=== PATIENT | male | born 1965 | race Caucasian/White ===

== ENCOUNTER 2017-03-01 21:52 | Emergency (ER) | payer OTHER ==
[~2017-03-01] VITALS: Ht 195.6 cm; Wt 181.8 kg
[~2017-03-01 21:52] MED LIST: ASPI-973 PO; CHOL200025 PO; CYCL10TA9 PO; EXEN10PE SUBQ; HYDR-3825 PO; IBUP800T28 PO; INSU100V7 SUBQ; LOVA20TA PO; MELO-253 PO; METF1000 PO; MULT-1018 PO; OMEG-38 PO; OMPR20CCR PO; SERT100T9 PO; TRAM50TA2 PO
[2017-03-01 22:15] VITALS: BP 121/75; PULSE 70; RESP 16; O2SAT 97
--- NOTE | 2017-03-01 23:05 | ED.REPORT ---
HPI-Back Pain 40 and Over Date of Service Mar 01, 2017 ED Provider: Krishna Chang MD A 51 year old male with a history of diabetes and depression presents to the ED with back pain onset six days ago, while sitting on his bed. The pain is described as "spasms," with associated nausea. The patient has tried OTC medication and marijuana with no relief. He denies fever, chills, incontinence, urinary retention, numbness, tingling, weakness, dysuria, abdominal pain, chest pain, shortness of breath, or other symptoms. The patient has had similar symptoms in the past, relieved with Flexeril. Nursing Notes Stated Complaint: BACK SPASMS Chief Complaint: Back Pain or Injury Nursing Notes Reviewed: Yes Allergies: Coded Allergies: No Known Allergies (Verified Allergy, Unknown, 03/24/16) Scheduled Aspirin (Aspirin) 81 Mg Tablet 81 MG PO DAILY Cholecalciferol (Vitamin D3) (Vitamin D3) 2,000 Unit Tablet 2,000 UNIT PO BID Exenatide Inj (Byetta Inj) 10 Mcg/0.04 Ml Pen.injctr 10 MCG SUBQ BIDAC Insulin Glargine (Lantus U100 Insulin Vial) 100 Unit/Ml Vial 124 UNIT SUBQ DAILY Lovastatin (Lovastatin) 20 Mg Tablet 20 MG PO HS Meloxicam (Meloxicam) 15 Mg Tablet 15 MG PO DAILY Metformin (Glucophage) 1,000 Mg Tablet 1,000 MG PO BID Multivitamin (Multi Vitamin Daily) 1 Each Tablet 1 EACH PO DAILY [place]-3/Dha/Epa/Fish Oil (Fish Oil 1,000 mg Softgel) 1 Each Capsule 1 EACH PO DAILY Omeprazole (Prilosec) 20 Mg Capcr 20 MG PO DAILY Sertraline HCl (Sertraline) 100 Mg Tablet 100 MG PO DAILY Scheduled PRN Cyclobenzaprine (Cyclobenzaprine) 10 Mg Tablet 10 MG PO BID PRN PRN Spasm Cyclobenzaprine (Cyclobenzaprine) 5 Mg Tablet 5 MG PO HS PRN PRN Spasm Hydrocodone-Acetaminophen 7.5-325 mg (Hydrocodone-Acetaminophen 7.5-325 mg) 1 Each Tablet 1 TABLET PO QID PRN PRN For Pain Ibuprofen (Ibuprofen) 800 Mg Tablet 800 MG PO TID PRN PRN For Pain Tramadol (Tramadol) 50 Mg Tablet 50-100 MG PO TID PRN PRN For Pain General Time Seen by MD: 23:05 Chief Complaint Back pain Hx Obtained From: Patient Arrived By: Walk-in Sudden in Onset?: Yes Onset Occurred: 6 days ago Symptom Duration: Since onset Caused by: Spontaneous/no mechanism Location: : Perispinal lumbar Quality: Painful Severity: Current: Moderate Severity: Maximum: Moderate Pertinent Negative: Relieved by nothing Related History: Denies: Spinal surgery Recent Healthcare: No recent doctor visit Similar Sx Previous: Yes Past Medical History Past Medical History Diabetes, type 2- metformin Depression Past Surgical History none Family History noncontributory Smoking History Former Smoker Social History Other Social History: Good social support, , Local resident Ambulatory Status Independent Review of Systems Review of Systems Note: - tingling Constitutional: Denies: Chills, Fever Respiratory: Denies: Non-productive cough, Shortness of breath Cardiovascular: Denies: Chest pain GI: Reports: Nausea, Denies: Abdominal pain, Diarrhea, Vomiting Male: Denies Dysuria, Denies Urination decreased Musculoskeletal: Reports: Back pain Neurologic: Denies: Bladder dysfunction, Bowel dysfunction, Numbness, Weakness Complete sys rev & neg: except as marked. Physical Exam Initial Vital Signs Vital Signs (First) Date Time Temp Pulse Resp B/P Pulse Ox O2 Delivery O2 Flow Rate FiO2 03/01/17 22:15 36.5 70 16 121/75 97 Room Air Initial VS: Reviewed Head / Eyes: Atraumatic, Normocephalic ENT: Conjunctiva normal, No scleral icterus Extremities: Vascular intact (Well-perfused), Neuro intact, No swelling, No tenderness Skin: Warm, Dry, No cyanosis Psychiatric: Mood/affect normal, Behavior normal, Normal thought content General/Constitutional: Awake, Alert Respiratory / Chest: Breath sounds NL, Breath sounds = bilat, No respiratory distress Cardiovascular: Heart rate NL, Regular rhythm, Heart sounds NL, No gallop, No murmurs, No rubs Abdomen: Soft, Non-tender, No guarding, No rebound, No distention Back: Atraumatic, No midline vertebral tend Flank / Spine / Paraspinal: Positive: Lumbar paraspinal tend... (Bilateral) No spinal step-off Neurologic: Oriented X3, Speech NL, No motor deficits (Full strength lower extremities), No sensory deficits (Sensation intact lower extremities) Neck: Supple, Full range of motion, Non-tender, No midline vertebral tend Re-Eval/Medical Decision Med Decision/Clinical Course In summary, the patient is a generally healthy 51-year-old male with past medical history significant for low back spasms, who presents with back pain that is similar to previous episodes. Our primary and secondary assessment reveals an awake, alert patient in no acute distress. Hemodynamically stable and afebrile. Exam reveals normal neurologic exam of the lower extremities. Given this immunocompetent, afebrile, patient's history and exam, suspect muscle strain or spasm. No concerning signs or symptoms suggestive of cauda equina, cord compression, epidural abscess or other neurologic emergency. History not suggestive of referred intraabdominal pathology or vascular emergency. There is no history of significant trauma, fever, incontinence, unexplained weight loss, cancer history, long-term steroid use or IV drug use. And given the patient's young age, I do not feel imaging is warranted at this time. Given the patient's workup, feel they are safe for discharge with conservative management. The patient was given Flexeril for symptom control while here in the ER. Have discussed with the patient results of workup, indications for return including: motor weakness in the lower extremities and/or bowel or bladder incontinence. Also emphasized the need for PCP follow up. They understand and agree with the plan. Source of Hx: Old records Re-Evaluation/Progress : Time of Eval: 23:40 Re-Evaluation/Progress Note: Discussed with patient physical exam findings, diagnosis, and plan for discharge. Follow-up and return to the ER instructions given. Patient agrees with plan for care and all questions were addressed. Counseled Regarding: Diagnosis, Need for follow-up, When/why to return to ED Discharge & Departure Impression: Primary Impression: Low back pain Chronicity: acute Back pain laterality: bilateral Sciatica presence: without sciatica Qualified Code: M54.5 - Low back pain Additional Impression: Back muscle spasm Disposition: Home Discharge Condition All VS Reviewed: Yes Condition: Improved Patient Instructions: Low Back Strain (ED) Additional Instructions: Thank you for seeking care at the emergency room. Our primary goal today in the ED was to evaluate you for any life-threatening conditions. Your evaluation was reassuring. You will be discharged with a prescription for Flexeril. Do not drink alcohol or take other pain medication while taking Flexeril. Avoid bed rest - try to move around as much as possible.You may also apply ice or heat compresses for pain. You should follow-up with your primary doctor in the next week. You should return to the ED immediately if you develop incontinence, worsening pain, numbness, tingling, fevers, vomiting, cough, shortness of breath, chest pain, lightheadedness, weakness or any other concerning signs or symptoms. Thank you for letting us partake in your care today. Referrals: Pato Burns MD (PCP) Scribe Attestation Portions of this note were transcribed by Milagro Polanco. I, Dr. Chang, personally performed the history, physical exam, and medical decision-making; I reviewed and confirmed the accuracy of the information in the transcribed note. Signed by: Ye Irwin, 03/01/2017, 23:45 copies to: Pato Burns MD, Beck O MD Mar 01, 2017 23:05 MILAGRO POLANCO Mar 01, 2017 23:23
[2017-03-01] MEDS ORDERED: CYCL5TAB PO (23:24)
[2017-03-01 23:48] VITALS: BP 156/78; PULSE 78; RESP 16; O2SAT 98
[2017-03-11] MEDS ORDERED: PROP80CA2 PO (09:26)
[2017-03-11] MEDS ORDERED: DEP500ER PO (09:26)
[2017-03-11] MEDS ORDERED: OMEP20TA86 PO (09:26)
[2017-03-11] MEDS ORDERED: EXEN2PEN SUBQ (14:26)
== END 2017-03-01 23:50 | disposition home or self-care (01) ==
LOC: SED 21:52
DX: M54.5 Low back pain (principal); M62.830 Muscle spasm of back; R11.0 Nausea; E11.9 Type 2 diabetes mellitus without complications; Z79.84 Long term (current) use of oral hypoglycemic drugs; Z79.4 Long term (current) use of insulin; Z79.82 Long term (current) use of aspirin; Z87.891 Personal history of nicotine dependence

== ENCOUNTER 2017-03-12 12:16 | Day surgery (SDC) | payer OTHER ==
--- NOTE | 2017-03-11 11:21 | PCM.ANEPRE ---
Anesthesia Pre-Op Review Reason for Review: BMI > 45, COMORBIDITIES Additional Comments BMI 48 w known CHUCKY currently treated. OK to proceed at anesthesiologist discretion. Jorge Luis Cerda MD Mar 11, 2017 11:21
[~2017-03-12] VITALS: Ht 195.6 cm; Wt 185.6 kg
[~2017-03-12 12:16] MED LIST changes: -CYCL10TA9 PO; +DEP500ER PO; -EXEN10PE SUBQ; +EXEN2PEN SUBQ; -HYDR-3825 PO; -IBUP800T28 PO; +Lactated Ringer's 1,000 ML IV ONE; -MULT-1018 PO; -OMEG-38 PO; +OMEP20TA86 PO; -OMPR20CCR PO; +PROP80CA2 PO; -SERT100T9 PO; -TRAM50TA2 PO
[2017-03-12] MEDS ORDERED: Ondansetron 2 mg/mL 2 mL Inj ONE (12:17)
[2017-03-12] MEDS ORDERED: fentaNYL-PF 50 mCg/mL 2 mL Inj ONE (12:17)
[2017-03-12] MEDS ORDERED: MetoCLOpramide 5 mg/mL 2 mL Inj ONE (12:17)
[2017-03-12] MEDS ORDERED: Propofol 10,000 mCg/mL 20 mL Inj ONE (12:17)
[2017-03-12] MEDS ORDERED: SERT50TA9 PO (12:30)
[2017-03-12 12:38] VITALS: BP 156/77; PULSE 76; RESP 16; O2SAT 97
[2017-03-12] MEDS ORDERED: Lidocaine 2%-Epi 1:100,000 20 mL Inj INFILTRATE ONE (13:37)
[2017-03-12] MEDS ORDERED: Ropivacaine-PF 0.5% 30 mL Inj INJ ONE (13:37)
[2017-03-12] MEDS ORDERED: Lactated Ringer's 1,000 ML IV SCH (13:47)
[2017-03-12] MEDS ORDERED: Lactated Ringer's 500 ML IV PRN (13:47)
--- NOTE | 2017-03-12 13:47 | PCM.HPANE ---
Patient Data Surgeon Admitting Provider: Attending Provider:Luis Carlos Hines DO Primary Care Physician:Pato Burns MD Other Provider:Eddy Nair Anesthesia Reason for Visit Right Torn Medial And Lateral Meniscus Ht/WT & BMI Height (Feet): 6 Height (Inches): 5 Weight (Kilograms): 183.977 Body Mass Index 47.00 Allergies Coded Allergies: No Known Allergies (Verified Allergy, Unknown, 03/11/17) Past Anesthesia History Anesthesia History: Denies:: Abnormal Airway, Anesthesia Reactions, Difficult Intubation, Fam Anesthesia Reaction, Fam Malignant Hypertherm, Malignant Hyperthermia Diabetes History Hx Diabetes?: Yes Type of Diabetes: Type II Glycemic Control: Insulin & Oral Medication MRSA MRSA: No Medications Blood Thinner: Aspirin Home Meds Incl Beta Livier: Yes (PROPRANOLOL) Reported Medications Sertraline HCl (Sertraline)50 Mg Puaioz149 Mg PO DAILY 30 Days Ref 0 03/12/17 Exenatide Inj (Bydureon Inj)2 Mg/0.65 Ml Pen.injctr2 Mg SUBQ WEEKLY Wednesday03/11/17 Propranolol ER 80 Mg Cap.sa.24h80 Mg PO DAILY 03/11/17 Omeprazole 20 Mg Tablet.dr20 Mg PO DAILY 03/11/17 Divalproex ER (Depakote ER)500 Mg Nmzhbe916 Mg PO BID Ref 0 *DAILY USE ONLY* Swallowed whole without chewing to avoid local irritation of the mouth and throat. 03/11/17 Metformin (Glucophage)1,000 Mg Tablet1,000 Mg PO BID Ref 0 09/04/15 Meloxicam 15 Mg Alnjqy02 Mg PO DAILY 30 Days Ref 0 09/04/15 Lovastatin 20 Mg Onbwxz52 Mg PO HS #30 TABLET Ref 0 09/04/15 Insulin Glargine (Lantus U100 Insulin Vial)100 Unit/Ml Kmwf727 Unit SUBQ DAILY # 1 VIAL Ref 0 09/04/15 Discontinued Reported Medications Cholecalciferol (Vitamin D3) (Vitamin D3)2,000 Unit Tablet2,000 Unit PO BID 09/04/15 Aspirin 81 Mg Mubqqd91 Mg PO DAILY Ref 0 09/04/15 Tramadol 50 Mg Afohze06-511 Mg PO TID PRN For Pain Ref 0 09/04/15 Sertraline HCl (Sertraline)100 Mg Lquuww738 Mg PO DAILY 30 Days Ref 0 10/14/15 Omeprazole (Prilosec)20 Mg Capcr20 Mg PO DAILY 30 Days Ref 0 09/04/15 Multivitamin (Multi Vitamin Daily)1 Each Tablet1 Each PO DAILY 30 Days Ref 0 09/04/15 Ibuprofen 800 Mg Dyirev029 Mg PO TID PRN For Pain Ref 0 09/04/15 Lane-3/Dha/Epa/Fish Oil (Fish Oil 1,000 mg Softgel)1 Each Capsule1 Each PO DAILY 09/04/15 Exenatide Inj (Byetta Inj)10 Mcg/0.04 Ml Pen.nsveml45 Mcg SUBQ BIDAC 09/04/15 Discontinued Scripts Cyclobenzaprine 5 Mg Tablet5 Mg PO HS PRN Spasm #20 TABLET Ref 0 Prov:Krishna Chang MD 03/01/17 Cyclobenzaprine 10 Mg Oqivyh57 Mg PO BID PRN Spasm #20 TABLET Prov:Vadim Gaona 03/24/16 Hydrocodone-Acetaminophen 7.5-325 mg 1 Each Tablet1 Tablet PO QID PRN For Pain # 16 TABLET Ref 0 Prov:Vadim Gaona 03/24/16 History History of ENT Problems?: No HEENT History: Denies:: Abnormal Airway Cataracts Difficult Intubation Dysphagia Hearing Problem Sinus Problem TMJ Denture Type: None Teeth Condition: Within Normal Limits Hx of Heart Problems?: Yes Cardiovascular History: Positive for:: Heart Murmur (innocent murmur as teenager) Hypertension (HYPERLIPIDEMIA) Denies:: AICD Abdominal Aortic Aneurism Atrial Fibrillation Cardiac Surgery Chest Pain Congestive Heart Failure Edema Irregular Heartbeat Pacemaker Rheumatic Fever Hx of Respiratory Problem?: Yes Respiratory History: Positive for:: Use of C-PAP Machine (CHUCKY+ W/ CPAP SLEEP STUDY 08/2012) Denies:: Asthma COPD Emphysema Pneumonia Tuberculosis Hx Neurologic Problems?: Yes Neurological History: Denies:: Alzheimer's Disease CVA Dementia Dizziness Headaches Multiple Sclerosis Parkinson's Disease (HX BENIGN ESSENTIAL TREMOR) Seizures Other Neurological Pertinent: C/OF INSOMNIA,PLMD,RLS Hx of GI Problems?: Yes Hx of Problems?: No Genitourinary History: Denies:: Kidney Stones Male Hx: Denies:: Prostate Problems Scrotal Mass Testicular Surgery (HX HYPOGONADISM) Skin History: Denies:: History Skin Disorders? Pressure Ulcers Hx Musculoskeletal Problems?: Yes Musculoskeletal History: Positive for:: Musculoskeletal Trauma (RT KNEE MENISCAL TEAR=CURRENT PROBLEM S/P LT KNEE SCOPE) Denies:: Back Injury (C/OF LOWER BACK STRAIN) Degenerative Joint Joint Replacement Systemic Lupus Hx of Psycho/Social Problems?: Yes Psycho Social History: Positive for:: Anxiety Hx Depression Denies:: Suicide Attempt Hx Surgeries?: Yes (LT KNEE SCOPE) Hx Any Other Health Problems?: Yes Other History: Denies:: Cancer Endocrine Disease Hospitalization Thyroid Disease History Blood Transfusions: Denies:: Blood Transfusions Hx Diabetes: Yes Hx Alcohol Use: NoHx Substance Use: No Smoking Status: Never Smoker Have You Smoked inLast 12 mo: No Stop/Bang S-Snoring: Do You Snore Loudly: Yes T-Tired: feel tired, fatigued: Yes O-Obsered: Observed not breath: No P-Blood Pressure: treated: Yes B- Body Mass Index > 35 kg/m2: Yes A- Age over 50: Yes N- Neck Large Circumference: Yes G- Gender Male: Yes CHUCKY Total Score: 7 CHUCKY Risk Assessment: High Risk, =/>3 Yes CHUCKY Category 1: Yes Risk Assessment Category Category 1A: Patient has history of documented sleep apnea, and HAS NOT received any narcotic, sedative or anesthesia administration during this stay. Category 1B: Patient has history of documented sleep apnea, and HAS received any narcotic , sedative or anesthesia administration during this stay Category 2: Patient has SUSPECTED Obstructive Sleep Apnea, and HAS received any narcotic , sedative or anesthesia administration during this stay. Category 3: Patient has SUSPECTED Obstructive Sleep Apnea and HAS NOT received narcotic, sedative or anesthesia administration during this stay. Category 4: Outpatient in Procedural Areas with known sleep apnea or who screen positive for High Risk via the STOP/BANG questionnaire. Exam Exam General Appearance: Alert, Oriented X3, Cooperative, No Acute Distress HEENT/AIRWAY: MP 2 Lungs: Clear to Auscultation Heart: Exam Unremarkable Plan Impression Patient chart reviewed, patient interviewed and anesthestic plan with risks, benefits, and alternatives discussed, and informed consent obtained. ASA Physical Status: ASA3 Severe Disease Anesthetic Plan: GA Bene/Risks/Altern/Consents: Yes HP Complete Prior to Induction: Yes Abdiel Rojas MD Mar 12, 2017 07:55
[2017-03-12] MEDS ORDERED: Phenylephrine 10,000 mCg/mL Inj IVPUSH PRN (13:50)
[2017-03-12] MEDS ORDERED: HYDROmorphone 1 mg/mL Inj IVPUSH PRN (13:50)
[2017-03-12] MEDS ORDERED: Dexamethasone 4 mg/mL Inj IVPUSH PRN (13:50)
[2017-03-12] MEDS ORDERED: fentaNYL-PF 50 mCg/mL 2 mL Inj IVPUSH PRN (13:50)
[2017-03-12] MEDS ORDERED: Ondansetron 2 mg/mL 2 mL Inj IVPUSH PRN (13:50)
[2017-03-12] MEDS ORDERED: EPHEDrine Sulfate 50 mg/mL Inj IVPUSH PRN (13:50)
[2017-03-12] MEDS ORDERED: MetoCLOpramide 5 mg/mL 2 mL Inj IVPUSH PRN (13:50)
[2017-03-12 14:21] VITALS: BP 121/71; PULSE 75; RESP 12; O2SAT 94
[2017-03-12 14:25] VITALS: BP 124/70; PULSE 72; RESP 12; O2SAT 96
[2017-03-12] MEDS ORDERED: Acetaminophen IV 1,000 MG in IV Premix 1 EACH IV ONE (14:25)
[2017-03-12] MEDS ORDERED: HYDROcodone-APAP 7.5-325 mg Tablet PO PRN (14:25)
[2017-03-12] MEDS ORDERED: hydrOXYzine Pamoate 25 mg Capsule PO PRN (14:25)
[2017-03-12 14:30] VITALS: BP 118/66; PULSE 70; RESP 12; O2SAT 94
[2017-03-12 14:45] VITALS: BP 114/64; PULSE 70; RESP 12; O2SAT 95
--- NOTE | 2017-03-12 14:56 | OP ---
[address] [address] OPERATIVE REPORT PATIENT: DAVID AU : 1965 MR#: [id number] ADMIT: 03/12/2017 JOB ID: [id number] DATE OF SURGERY: 03/12/2017 SURGEON: Luis Carlos Hines D.O. PREOPERATIVE DIAGNOSIS(ES): Right knee torn medial and lateral meniscus. POSTOPERATIVE DIAGNOSIS(ES): Right knee torn medial meniscus with synovitis. ANESTHESIA: General. PROCEDURE: Right knee video arthroscopy with partial medial meniscectomy and limited synovectomy. INDICATIONS: The patient is a 51-year-old male who injured his right knee while he was working in a tight spot working on a wing assembly and continued to have medial knee pain. Had an MRI performed which demonstrated a torn medial meniscus and we discussed treatment options for this and he wished to proceed with a knee arthroscopy with partial medial and possibly lateral meniscectomy. We discussed risks, benefits, and possible complications of surgery. All questions were answered and he wished to proceed. PROCEDURE IN DETAIL: The patient was brought into the operating room. He was given a preoperative LMA general anesthetic. The right lower extremity was sterilely prepped and draped. An incision was made over the anterolateral knee at the level of joint line and the blunt trocar was introduced into the knee. Inspection was undertaken. He was found to have a tear in the midbody and posterior horn medial meniscus. A medial portal was established under needle localization and the meniscus was trimmed back to a stable base with a combination of biters and shaver. He had some degenerative chondromalacia, C2-C3 changes over the medial femoral condyle which were smoothed out with the shaver in addition to resecting out the medial meniscal tear. His ACL was inspected and found to be intact. His lateral compartment was in excellent condition without tear or significant degenerative changes. His patellofemoral joint had some patellofemoral chondromalacia with some C3 changes in the trochlea, C2 over the patella and impinging synovitis which was resected with the shaver. The scope was then removed. The portals were closed with interrupted nylon suture and sterile dressings were applied. The patient tolerated the procedure well. Blood loss was minimal. POSTOPERATIVE PROTOCOL: Have the patient weightbear to tolerance. Ice and elevate and followup in clinic in two weeks or sooner if needed. He was given a prescription for [place] 7.5/325 for pain.
[2017-03-12 15:20] VITALS: BP 114/62; PULSE 68; RESP 14; O2SAT 95
--- NOTE | 2017-03-12 15:34 | PCM.ANEP1 ---
Post Anesthesia Phase 1 PACU Phase 1 Assessment Vital Signs Vital Signs Date Time Temp Pulse Resp B/P Pulse Ox O2 Delivery O2 Flow Rate FiO2 03/12/17 14:45 70 12 114/64 95 Nasal Cannula 2 03/12/17 14:30 70 12 118/66 94 Nasal Cannula 2 03/12/17 14:25 72 12 124/70 96 Simple Mask 10 03/12/17 14:21 36.6 75 12 121/71 94 Simple Mask 10 03/12/17 12:38 36 76 16 156/77 97 Room Air Anesthetic Administered: GA Level of Alertness: Awake, talking ABREU's with Equal Strength: Yes Pain: No Nausea or Vomiting: No Cardiovascular Function and Hy: Yes Oxygen Delivery: Simple Mask Lungs: Clear to Auscultation Dermatome Level: Full Sensation Complications: No Abdiel Rojas MD Mar 12, 2017 15:34
== END 2017-03-12 23:59 | disposition home or self-care (01) ==
LOC: SAS 12:16
PROVIDERS: ATTEND Orthopaedic Surgery
DX: S83.241A Other tear of medial meniscus, current injury, right knee, initial encounter (principal); M22.41 Chondromalacia patellae, right knee; M65.861 Other synovitis and tenosynovitis, right lower leg; E78.2 Mixed hyperlipidemia; E11.9 Type 2 diabetes mellitus without complications; G47.33 Obstructive sleep apnea (adult) (pediatric); G25.81 Restless legs syndrome; E66.01 Morbid (severe) obesity due to excess calories; F41.9 Anxiety disorder, unspecified; F32.9 Major depressive disorder, single episode, unspecified; G25.0 Essential tremor; X58.XXXA Exposure to other specified factors, initial encounter; Y93.89 Activity, other specified; Y92.69 Other specified industrial and construction area as the place of occurrence of the external cause; Y99.0 Civilian activity done for income or pay; Z79.4 Long term (current) use of insulin; Z79.84 Long term (current) use of oral hypoglycemic drugs; Z68.42 Body mass index [BMI] 45.0-49.9, adult; Z79.82 Long term (current) use of aspirin
CPT/HCPCS: 29881; J0131; J1885; J2405; J2765; J2795; J3010; J7120

== ENCOUNTER 2017-08-03 12:48 | Emergency (ER) | payer OTHER ==
[~2017-08-03] VITALS: Ht 195.6 cm; Wt 187.7 kg
[~2017-08-03 12:48] MED LIST changes: -ASPI-973 PO; -CHOL200025 PO; -Lactated Ringer's 1,000 ML IV ONE; +SERT50TA9 PO
[2017-08-03 12:51] VITALS: BP 122/81; PULSE 71; RESP 16; O2SAT 98
--- NOTE | 2017-08-03 13:32 | DRSVH ---
PROCEDURE: X-RAY LEFT HAND, MINIMUM THREE VIEWS ([id number]) INDICATIONS: Chisel strike to left index knuckle TECHNIQUE: 3 views of the hand(s) acquired. COMPARISON: [facility], , HAND MIN 3VW (LT), 08/23/2012, 11:39. FINDINGS: Bones: No fractures or dislocations. Carpal bones are normally aligned. No suspicious bony lesions . Soft tissues: No suspicious soft tissue calcifications. IMPRESSION: No fracture. No osseous lesion. If symptoms and/or clinical suspicion for pathology pers ists, further assessment with repeat radiographs or advanced imaging (e.g. CT, MRI or bone scan) may be helpful. Dictated by: Lesa Vargas MD, PhD on 08/03/2017 at 13:29 Approved by: Lesa Vargas MD, PhD on 08/03/2017 at 13:30
--- NOTE | 2017-08-03 13:59 | ED.REPORT ---
HPI-Extremity Problem Upper Date of Service Aug 03, 2017 ED Provider: Doc,Ed MD History of Present Illness: working with a wood carving chisel and cut on left hand on index finger today at 1145. right hand dominant. unknown tdap. normally healthy. 05/01. primary care is [facility] Nursing Notes Stated Complaint: LEFT HAND LACERATION Chief Complaint: Extremity Trauma Nursing Notes Reviewed: Yes Allergies: Coded Allergies: No Known Allergies (Verified Allergy, Unknown, 08/03/17) Scheduled Divalproex ER (Depakote ER) 500 Mg Tablet 500 MG PO BID *DAILY USE ONLY* Swallowed whole without chewing to avoid local irritation of the mouth and throat. Exenatide Inj (Bydureon Inj) 2 Mg/0.65 Ml Pen.injctr 2 MG SUBQ WEEKLY WEDNESDAY Insulin Glargine (Lantus U100 Insulin Vial) 100 Unit/Ml Vial 124 UNIT SUBQ DAILY Lovastatin (Lovastatin) 20 Mg Tablet 20 MG PO HS Meloxicam (Meloxicam) 15 Mg Tablet 15 MG PO DAILY Metformin (Glucophage) 1,000 Mg Tablet 1,000 MG PO BID Omeprazole (Omeprazole) 20 Mg Tablet.dr 20 MG PO DAILY Propranolol ER (Propranolol ER) 80 Mg Cap.sa.24h 80 MG PO DAILY Sertraline HCl (Sertraline) 50 Mg Tablet 150 MG PO DAILY General Time Seen by MD: 13:58 Chief Complaint Hand Injury left Hx Obtained From: Patient Onset Occurred: Just prior to arrival Caused by: Accidental Past Medical History Past Medical History Diabetes, type 2- metformin Depression Past Surgical History none Family History noncontributory Smoking History Current Every Day Smoker (cigar occasionally) Social History Alcohol Use: "Social" Drug Use: Denies drug use Other Social History: Good social support, , Local resident Occupation work at [employer] 08/03/2017 Ambulatory Status Independent Review of Systems Basic Review of Systems Eyes: Vision NL, No discharge GI: No abdominal pain, No anorexia, No nausea, No vomiting Psychiatric: Normal thought content Physical Exam Initial Vital Signs Vital Signs (First) Date Time Temp Pulse Resp B/P Pulse Ox O2 Delivery O2 Flow Rate FiO2 08/03/17 12:51 36.6 71 16 122/81 98 Room Air Initial VS: Reviewed, Vital signs normal General/Constitutional: Well-developed, Well-nourished Head / Eyes: Atraumatic, Normocephalic, PERRL ENT: Mucous membranes moist, Conjunctiva normal, No scleral icterus Neck: Supple, Non-tender, Full range of motion Respiratory: Breath sounds normal, Clear to auscultation, No respiratory distress Cardiovascular: Regular rate & rhythm, Heart sounds normal, Intact distal pulses Abdomen / GI: Soft, Non-tender, No guarding, No rebound, No distention Back: No CVA tenderness Lymphatic: No lymphadenopathy Lower Extremities: Vascular intact, Neuro intact, No swelling, No tenderness Skin: Warm, Dry, No cyanosis Neurologic: Alert, Oriented, Nonfocal Psychiatric: Mood/affect normal, Behavior normal, Normal thought content General/Constitutional: Awake, Alert, No acute distress, Well appearing, Well developed, Well hydrated Respiratory / Chest: Atraumatic, Breath sounds NL, Breath sounds = bilat, No respiratory distress Cardiovascular: Heart rate NL, Regular rhythm, Heart sounds NL Upper Extremity / MS: Atraumatic, Inspection NL, Full range of motion, No swelling left hand has laceration on dorsal aspect of left hand at base of index finger. laceration has been glued with model super glue per patient. Patient has full range of motion of index finger. Cap refill less than 2 sec. Sensation intact distally. no active bleeding Interpretation & Diagnostics X-Ray Interpretation Xray Interpretation: ROCEDURE: X-RAY LEFT HAND, MINIMUM THREE VIEWS ([id number]) INDICATIONS: Chisel strike to left index knuckle TECHNIQUE: 3 views of the hand(s) acquired. COMPARISON: [facility], , HAND MIN 3VW (LT), 08/23/2012, 11:39. FINDINGS: Bones: No fractures or dislocations. Carpal bones are normally aligned. No suspicious bony lesions. Soft tissues: No suspicious soft tissue calcifications. IMPRESSION: No fracture. No osseous lesion. If symptoms and/or clinical suspicion for pathology persists, further assessment with repeat radiographs or advanced imaging (e.g. CT, MRI or bone scan) may be helpful. Dictated by: Lesa Vargas MD, PhD on 08/03/2017 at 13:29 Approved by: Lesa Vargas MD, PhD on 08/03/2017 at 13:30 Re-Eval/Medical Decision Med Decision/Clinical Course 52 year old male presents to the ER for evualation of hand injury. Patient did a self repair with model super glue before arrival. No active bleeding. Movement is intact of the finger. Sensation is intact. X-ray is negative. No sign of compartment syndrome. patient does not want the super glue removed for futher evualation. Explained risks and benefits. Discharge & Departure Impression: Primary Impression: Hand laceration Encounter type: initial encounter Laterality: left Disposition: Home Patient Instructions: Laceration (ED) Additional Instructions: You have been updated on your tdap today. The x-ray does not show any sign of fracture. You used model super glue to seal the wound before arrival to the ER. The wound looks good. At your request the glue will not be removed or the wound refreshed. Because of not being able to wash the wound, you are being started on antibiotics, keflex 500 mg 4 times a day for 7 days. I am sorry this happened. Can use hydrocodone 1 up to 2 times a day as needed for severe unrelenting pain. Use ibuprofen 800 mg up to 3 times a day as needed for pain and swelling reduction. Referrals: [facility] (PCP) EDSupervising Provider for APC: Jose Graff MD copies to: [facility] Sultana Hidalgo Aug 03, 2017 13:59
[2017-08-03] MEDS ORDERED: TdaP Vaccine 0.5 mL Inj IM ONE (14:10)
[2017-08-03 14:39] VITALS: BP 122/81; PULSE 71; RESP 16; O2SAT 98
== END 2017-08-03 14:43 | disposition home or self-care (01) ==
LOC: SED 12:48
DX: S61.412A Laceration without foreign body of left hand, initial encounter (principal); W26.8XXA Contact with other sharp object(s), not elsewhere classified, initial encounter; Y93.89 Activity, other specified; Y92.89 Other specified places as the place of occurrence of the external cause; Y99.8 Other external cause status; F17.200 Nicotine dependence, unspecified, uncomplicated; E11.9 Type 2 diabetes mellitus without complications; F32.9 Major depressive disorder, single episode, unspecified; Z79.4 Long term (current) use of insulin; Z79.84 Long term (current) use of oral hypoglycemic drugs; Z23 Encounter for immunization